=== PATIENT | female | born 1985 | race Caucasian/White ===

== ENCOUNTER 2018-09-15 22:02 | Emergency (ER) | payer BC ==
--- NOTE | 2018-09-15 22:52 | EDM.PDOC ---
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 The patient is and in a monogamous relationship and says she doesn't get periods very often sometimes only once or twice a year and when she gets them they are very heavy. Her last period was in April. The patient says it usually starts out with a brown discharge similar to today but then she started getting cramping and bleeding and that has not progressed. The patient says she has had cysts in the past but not since she was a teenager and she has not had a recent ultrasound or documentation of the status of her ovaries. The patient has not had sexual intercourse within the last 1-2 days and the pain came on gradually. She did she has a urinary tract infection as it hurts and [place] when she PEs but she has no flank pain or upper abdominal pain. She has no fever chills nausea vomiting or anorexia. The patient says she has not had to use a pad and only sees the discharge when she wipes. It is not bloody. She denies STD risks or STD history. Review of systems: As per history of present illness and below otherwise all systems reviewed and negative. Past medical history: As per history of present illness and as reviewed below otherwise noncontributory. Surgical history: As per history of present illness and as reviewed below otherwise noncontributory. Social history: No reported history of drug or alcohol abuse. Family history: As per history of present illness and as reviewed below otherwise noncontributory. Physical exam: General: Well-developed well-nourished overweight female who is nontoxic and vital signs are noted by me she moves easily in the ED without distress HEENT: Atraumatic, normocephalic, negative for conjunctival pallor or scleral icterus, mucous membranes moist, throat clear, neck supple, nontender, trachea midline. Lungs: Clear to auscultation, breath sounds equal bilaterally, chest nontender. Heart: S1S2, regular ate and rhythm no overt murmurs Abdomen: Soft, nondistended, there is only minimal tenderness on deep palpation of the right lower quadrant Negative for masses or hepatosplenomegaly. Negative for costovertebral tenderness. Pelvis: Stable nontender. Genitourinary: External genitalia are within normal limits and the uterus is small and nontender. It is difficult for me to capture ovaries on either side and there is only minimal tenderness on the right adnexa. There is a small amount of grayish discharge on my exam. Rectal: Deferred. Extremities: Atraumatic, negative for cords or calf pain. Neurovascular unremarkable. Neuro: Awake, alert, oriented. Cranial nerves II through XII unremarkable. Cerebellum unremarkable. Motor and sensory unremarkable throughout. Exam nonfocal. Diagnostics: UA with reflex UCG pelvic ultrasound Therapeutics: Patient and at bedside are aware of all testing results and need to follow-up with gynecology as she may need more evaluation and care to evaluate her hormone levels , symptomatology and her PCO S. I will treat her UA results and send a culture and she is comfortable with this care plan and disposition Impression: Pelvic pain with history of PCO S stable, UTI Definitive disposition and diagnosis as appropriate pending reevaluation and review of above. lower abdomen Pain Score (Numeric/FACES): 8 - Related Data Allergies Allergy/AdvReac Type Severity Reaction Status Date / Time codeine Allergy Hives Verified 09/15/18 22:22 Sulfa (Sulfonamide Allergy Hives Verified 09/15/18 22:22 Antibiotics) trazodone Allergy Hives Verified 09/15/18 22:22 charley nuts Allergy Hives Uncoded 09/15/18 22:22 Home Meds: Home Meds buPROPion [Wellbutrin] 100 mg PO DAILY 09/15/18 [History] metFORMIN [Glucophage] 500 mg PO BIDMEALS 09/15/18 [History] Past Medical History HEENT History: Reports: None Cardiovascular History: Reports: None Respiratory History: Reports: None Gastrointestinal History: Reports: None Genitourinary History: Reports: None 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 (See Below) Other WIRE DRAWING MACHINE OPERATOR History: PCOS Musculoskeletal History: Reports: None Neurological History: Reports: None Psychiatric History: Reports: Anxiety, Depression Endocrine/Metabolic History: Reports: None Hematologic History: Reports: None Immunologic History: Reports: None Oncologic (Cancer) History: Reports: None Dermatologic History: Reports: None - Infectious Disease History Infectious Disease History: Reports: None - Past Surgical History Head Surgeries/Procedures: Reports: None Social & Family History - Family History Family Medical History: Noncontributory - Tobacco Use Smoking Status *Q: Former Smoker Used Tobacco, but Quit: No Tobacco Use Comment: stated quit 4 weeks ago - Caffeine Use Caffeine Use: Reports: Coffee - Recreational Drug Use Recreational Drug Use: No ED ROS GENERAL - Review of Systems Review Of Systems: ROS reveals no pertinent complaints other than HPI. ED EXAM, GENERAL - Physical Exam Exam: See Below (see Dictation) Course - Vital Signs Last Recorded V/S: Last Vital Signs Temp 36.6 C 09/15/18 22:23 Pulse 88 09/15/18 22:23 Resp 18 09/15/18 22:23 BP 125/71 09/15/18 22:23 Pulse Ox 98 09/15/18 22:23 - Orders/Labs/Meds Orders: Active Orders 24 hr Category Date Time Status CULTURE URINE [RM] Stat Lab 09/15/18 22:40 Received Labs: Laboratory Tests 09/15/18 09/15/18 Range/Units 22:40 22:40 Urine Color YELLOW Urine Appearance SLT CLOUDY Urine pH 5.5 (5.0-8.0) Ur Specific [place] >= 1.030 (1.001-1.035) Urine Protein NEGATIVE (NEGATIVE) mg/dL Urine Glucose (UA) NEGATIVE (NEGATIVE) mg/dL Urine Ketones NEGATIVE (NEGATIVE) mg/dL Urine Occult Blood MODERATE H (NEGATIVE) Urine Nitrite NEGATIVE (NEGATIVE) Urine Bilirubin NEGATIVE (NEGATIVE) Urine Urobilinogen 0.2 (<2.0) EU/dL Ur Leukocyte Esterase SMALL H (NEGATIVE) Urine RBC NONE SEEN (0-2/HPF) Urine WBC 9-11 (0-5/HPF) Ur Squamous Epith Cells MODERATE Urine Bacteria 2+ H (NEGATIVE) Urine Mucus LIGHT (NONE-MOD) Urine Yeast MODERATE Urine HCG, Qual NEGATIVE (NEGATIVE) Departure - Departure Time of Disposition: 00:27 Disposition: Home, Self-Care 01 Condition: Good Clinical Impression: Pelvic pain, PCOS (polycystic ovarian syndrome) UTI (urinary tract infection) Qualifiers: Urinary tract infection type: site unspecified Hematuria presence: without hematuria Qualified Code(s): N39.0 - Urinary tract infection, site not specified - Discharge Information Referrals: PCP,None [Primary Care Provider] - Forms: ED Department Discharge Additional Instructions: The following information is given to patients seen in the emergency department who are being discharged to home. This information is to outline your options for follow-up care. We provide all patients seen in our emergency department with a follow-up referral. The need for follow-up, as well as the timing and circumstances, are variable depending upon the specifics of your emergency department visit. If you don't have a primary care physician on staff, we will provide you with a referral. We always advise you to contact your personal physician following an emergency department visit to inform them of the circumstance of the visit and for follow-up with them and/or the need for any referrals to a consulting specialist. The emergency department will also refer you to a specialist when appropriate. This referral assures that you have the opportunity for followup care with a specialist. All of these measure are taken in an effort to provide you with optimal care, which includes your followup. Under all circumstances we always encourage you to contact your private physician who remains a resource for coordinating your care. When calling for followup care, please make the office aware that this follow-up is from your recent emergency room visit. If for any reason you are refused follow-up, please contact the [facility] emergency department at and ask to speak to the emergency department charge nurse. [address] [address] Push hydration and rest and continue to monitor your symptoms and keep a symptom journal to help assist your provider in the clinic. Call the clinic in the morning and schedule a follow-up appointment making sure to tell them that you're in the ED and evaluated here tonight. Return to ER as needed and as discussed. Please take your antibiotics, ciprofloxacin, as prescribed to you from [facility] - My Orders Last 24 Hours: My Active Orders 09/15/18 22:40 CULTURE URINE [RM] Stat - Assessment/Plan Last 24 Hours: My Active Orders 09/15/18 22:40 CULTURE URINE [RM] Stat
--- NOTE | 2018-09-16 00:05 | US ---
INDICATION: Right lower quadrant pain. Spotting TECHNIQUE: Multiple transvaginal sonographic images of the pelvis COMPARISON: None available FINDINGS: Uterus: 6.5 x 2.6 x 4.0 cm. Normal echotexture of the myometrium. No masses. Endometrium: 3-4 mm in thickness. Small cystic foci in the region of the endocervical canal may represent small nabothian cysts. Right ovary: 2.8 x 2.0 x 2.2 cm. No ovarian or adnexal masses. Multiple small peripheral follicles. Normal arterial and venous blood flow. Left ovary: 3.1 x 2.3 x 2.3 cm. No ovarian or adnexal masses. Multiple small peripheral follicles. Normal arterial and venous blood flow. Cul-de-sac: No significant free fluid. IMPRESSION: Small cystic foci in the region of the endocervical canal could represent nabothian cysts, although may be related to the canal. Correlate with gynecological evaluation. Bilateral ovarian Doppler flow documented. Multiple small peripheral ovarian follicles. Correlate for PCOS. Dictated by Kendrick Velasquez MD @ 09/16/2018 12:03:16 AM Dictated by: Kendrick Velasquez MD @ 09/16/2018 00:03:39 (Electronically Signed)
== END 2018-09-16 00:40 | disposition home or self-care (01) ==
LOC: MW.ED 22:02
DX: N39.0 Urinary tract infection, site not specified (principal); E28.2 Polycystic ovarian syndrome; R10.2 Pelvic and perineal pain; F41.9 Anxiety disorder, unspecified; F32.9 Major depressive disorder, single episode, unspecified; Z87.891 Personal history of nicotine dependence; Z88.5 Allergy status to narcotic agent; Z88.2 Allergy status to sulfonamides; Z79.899 Other long term (current) drug therapy
CPT/HCPCS: 76856; 76856-26; 81001; 81025; 87086; 99284; 99284-25

== ENCOUNTER 2019-04-04 01:45 | Emergency (ER) | payer BC ==
[2019-04-04] MEDS ORDERED: Sodium Chloride 0.9% 1,000 ML IV ONE (01:53)
[2019-04-04] MEDS ORDERED: Ketorolac 30 MG/ML SDV IVPUSH ONE (01:53)
[2019-04-04] MEDS ORDERED: Ondansetron 4 MG/2 ML SDV IVPUSH ONE (01:53)
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
== END 2019-04-04 03:08 | disposition home or self-care (01) ==
LOC: MW.ED 01:45
DX: S02.31XA Fracture of orbital floor, right side, initial encounter for closed fracture (principal); S06.0X0A Concussion without loss of consciousness, initial encounter; F17.210 Nicotine dependence, cigarettes, uncomplicated; Z88.2 Allergy status to sulfonamides; Z88.5 Allergy status to narcotic agent; Z88.8 Allergy status to other drugs, medicaments and biological substances; Z91.018 Allergy to other foods; V89.2XXA Person injured in unspecified motor-vehicle accident, traffic, initial encounter; Y92.410 Unspecified street and highway as the place of occurrence of the external cause
CPT/HCPCS: 70450; 80305; 81003; 96361; 96374; 96375; 99284; J1885; J2405; J7040